=== PATIENT | female | born 1960 | race Two or more races ===

== ENCOUNTER 2023-06-16 10:34 | Outpatient (CLI) | payer OTHER, BC | END 2023-06-16 10:35 | disposition critical access hospital (66) | LOC: EMS 10:34 | DX: R51.9 Headache, unspecified (principal); R10.814 Left lower quadrant abdominal tenderness; M25.571 Pain in right ankle and joints of right foot; V43.52XA Car driver injured in collision with other type car in traffic accident, initial encounter; Y92.413 State road as the place of occurrence of the external cause; R55 Syncope and collapse; R11.2 Nausea with vomiting, unspecified | CPT/HCPCS: A0425; A0429 ==